=== PATIENT | male | born 1945 | race Two or more races ===

== ENCOUNTER 2021-06-03 06:28 | Inpatient (IN) | payer OTHER ==
[~2021-06-03] VITALS: Ht 167.6 cm; Wt 89.8 kg
[2021-06-03] MEDS ORDERED: CHILDREN'S ASPI81 MG (06:39)
[2021-06-03] MEDS ORDERED: NORVASC5 MG (06:39)
[2021-06-03] MEDS ORDERED: LIPITOR20 MG (06:40)
[2021-06-03] MEDS ORDERED: METFORMIN HCL500 MG (06:41)
[2021-06-03] MEDS ORDERED: GLIPIZIDE ER5 MG (06:41)
[2021-06-03] MEDS ORDERED: LEVOTHYROXINE25 MCG (06:42)
[2021-06-04] MEDS ORDERED: ULTRACET PO (07:52)
== END 2021-06-04 10:06 | disposition home or self-care (01) | DRG 349 ==
LOC: ER 06:28 → SEC-K 08:03 → O/R 08:03 → SURH 23:41
PROVIDERS: ADMIT Surgery; ATTEND Surgery
PROC: 3E0F7SF Introduction of Other Gas into Respiratory Tract, Via Natural or Artificial Opening (ICD-10-PCS; 2021-06-03)
PROC: 3E0T3BZ Introduction of Anesthetic Agent into Peripheral Nerves and Plexi, Percutaneous Approach (ICD-10-PCS; 2021-06-03)
PROC: 06BY3ZC Excision of Hemorrhoidal Plexus, Percutaneous Approach (ICD-10-PCS; principal; 2021-06-03 16:00)
DX: K64.5 Perianal venous thrombosis (principal); Z20.822 Contact with and (suspected) exposure to COVID-19